=== PATIENT | male | born 2000 | race Caucasian/White ===

== ENCOUNTER → 2022-11-24 | Outpatient (CLI) | payer BC ==
[~2022-11-24] MED LIST: ADDERALL XR25 MG
== END ==
LOC: LAB 10:25
DX: K13.70 Unspecified lesions of oral mucosa (principal); J06.9 Acute upper respiratory infection, unspecified

== ENCOUNTER 2024-11-22 22:58 | Emergency (ER) | payer BC ==
[~2024-11-22] VITALS: Ht 177.8 cm; Wt 77.3 kg
[2024-11-22] MEDS ORDERED: Ondansetron 4 MG/2 ML VIAL IV ONE (23:15)
[2024-11-22] MEDS ORDERED: NS 1,000 ML IV SCH (23:15)
[2024-11-22 23:17] LABS: BASO # 0.01 K/mm3 (0.02-0.10); EOS # 0.04 K/mm3 (0.04-0.40); EOS % 0.3 % (0.0-4.0); HEMATOCRIT 48.1 % (42.0-52.0); HEMOGLOBIN 16.6 g/dL (13.5-18.0); LYMPH# 0.74 K/mm3 (1.50-4.00); MEAN CELL VOLUME 85 fl (78-100); MEAN CORPUSCULAR HEMOGLOBIN 29 pg (27-31); MEAN CORPUSCULAR HGB CONC 35 g/dL (33-37); MONO # 0.63 K/mm3 (0.20-0.80); NEU # 13.12 K/mm3 (1.40-6.50); PLATELET COUNT 231 K/mm3 (130-400); RED BLOOD COUNT 5.67 M/mm3 (4.20-5.60); RED CELL DISTRIBUTION WIDTH 11.9 % (11.5-14.5); WHITE BLOOD COUNT 14.6 K/mm3 (4.8-10.8)
[2024-11-22 23:23] LABS: ALBUMIN 5.1 g/dL (3.5-5.0)
[2024-11-22 23:25] LABS: CALCIUM 10.8 mg/dL (8.3-10.5)
[2024-11-22 23:26] LABS: TOTAL PROTEIN 8.5 g/dL (6.4-8.3)
[2024-11-22 23:28] LABS: TOTAL BILIRUBIN 2.7 mg/dL (0.2-1.2)
[2024-11-22] MEDS ORDERED: droPERidol 2.5 MG/ML 2 ML VIAL IV ONE (23:30)
[2024-11-23 01:15] LABS: URINE APPEARANCE SLIGHTLY CLOUDY (CLEAR); URINE COLOR YELLOW (YELLOW)
[2024-11-23 01:16] LABS: URINE BILIRUBIN NEGATIVE (NEGATIVE); URINE BLOOD NEGATIVE (NEGATIVE); URINE GLUCOSE NEGATIVE (NEGATIVE); URINE KETONE 3+ (NEGATIVE); URINE LEUKOCYTE ESTERASE NEGATIVE (NEGATIVE); URINE NITRATE NEGATIVE (NEGATIVE); URINE PROTEIN(semi-quant) NEGATIVE (NEGATIVE); URINE WBC 0-1 /hpf (0-3)
[2024-11-23] MEDS ORDERED: ZOFRAN ODT4 MG PO (01:33)
[2024-11-23 01:43] VITALS: BP 119/71
[2024-11-23] MEDS ORDERED: Home Ondansetron ODT 4 MG #2 ODT/PACK PO ONE (01:45)
== END 2024-11-23 01:44 | disposition home or self-care (01) ==
LOC: ED 22:58
PROVIDERS: Family Medicine
DX: A08.4 Viral intestinal infection, unspecified (principal); E86.9 Volume depletion, unspecified; F17.290 Nicotine dependence, other tobacco product, uncomplicated
CPT/HCPCS: J1790; J2405; J7030